=== PATIENT | female | born 2000 | race Caucasian/White ===

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

== ENCOUNTER 2020-02-26 12:50 | Emergency (ER) | payer BC, OTHER ==
[~2020-02-26] VITALS: Ht 160 cm; Wt 63.5 kg
[2020-02-26 12:52] VITALS: BP 126/75
== END 2020-02-26 13:49 | disposition home or self-care (01) ==
LOC: ED 12:50
DX: T63.441A Toxic effect of venom of bees, accidental (unintentional), initial encounter (principal); R13.10 Dysphagia, unspecified; Y92.89 Other specified places as the place of occurrence of the external cause

== ENCOUNTER 2021-01-03 15:59 | Emergency (ER) | payer OTHER ==
[~2021-01-03] VITALS: Ht 162.5 cm; Wt 68.0 kg
[2021-01-03 16:08] VITALS: BP 135/88
[2021-01-03 18:57] LABS: BASO # 0.1 10*3/uL (0.0-0.1); BASO % 0.5 % (0.0-1.0); EOS # 0.1 10*3/uL (0.0-0.4); EOS % 0.7 % (1.0-4.0); HEMATOCRIT 43.2 % (37.0-47.0); LYMPH # 4.4 10*3/uL (1.3-4.4); LYMPH % 31.3 % (27.0-41.0); MEAN CELL VOLUME 87.4 fl (81.0-99.0); MEAN CORPUSCULAR HGB 30.4 pg (27.0-31.0); MEAN CORPUSCULAR HGB CONC 34.7 g/dl (33.0-37.0); MEAN PLATELET VOLUME 10.1 fl (9.6-12.3); MONO % 6.9 % (3.0-9.0); NEUT # 8.3 10*3/uL (2.3-7.9); NEUT % 60.2 % (47.0-73.0); PLATELET COUNT AUTOMATED 266 10*3/uL (130-400); RED BLOOD COUNT 4.94 10*6/uL (4.10-5.10); RED CELL DISTRI WIDTH 11.4 % (0-14.5); WHITE BLOOD COUNT 13.9 10*3/uL (4.8-10.8)
[2021-01-03 19:14] LABS: ALBUMIN 4.1 gm/dl (3.1-4.5); ALKALINE PHOSPHATASE 138 U/L (45-117); BUN 10 mg/dl (7-24); CHLORIDE 105 mmol/L (98-107); CREATININE 0.82 mg/dL (0.55-1.02); LIPASE 77 U/L (73-393); POTASSIUM 3.9 mmol/L (3.5-5.1); SGOT/AST 20 IU/L (3-35); SGPT/ALT 27 U/L (12-78); SODIUM 137 mmol/L (136-145); TOTAL PROTEIN 7.8 gm/dL (6.4-8.2)
[2021-01-03 19:25] LABS: BILIRUBIN Negative (Negative); BLOOD Negative (Negative); CLARITY Clear (Clear); COLOR Yellow (Yellow); GLUCOSE Negative (Negative); KETONE Negative (Negative); LEUKO ESTERASE Negative (Negative); NITRITE Negative (Negative); SPECIFIC GRAVITY >= 1.030 (1.001-1.030); UROBILINOGEN 0.2 E.U./dl (0.0-1.0)
[2021-01-03 19:42] LABS: BACTERIA TRACE; RBC 0-2 rbc/hpf (0-2); WBC 0-2 wbc/hpf (0-5)
== END 2021-01-03 20:45 | disposition home or self-care (01) ==
LOC: ED 15:59
PROVIDERS: Physician Assistant
DX: R10.31 Right lower quadrant pain (principal); Z79.899 Other long term (current) drug therapy

== ENCOUNTER → 2021-03-04 | Outpatient (CLI) | payer OTHER | END | disposition home or self-care (01) | LOC: US 03-01 10:00 | PROVIDERS: ATTEND Nurse Practitioner Women's Health | DX: N83.202 Unspecified ovarian cyst, left side (principal) ==

== ENCOUNTER 2022-07-07 13:22 | Emergency (ER) | payer OTHER, BC ==
[~2022-07-07] VITALS: Ht 162.5 cm; Wt 68.0 kg
[2022-07-07 13:36] VITALS: BP 144/79
[2022-07-07 13:52] LABS: BILIRUBIN Negative (Negative); BLOOD Negative (Negative); CLARITY Turbid (Clear); COLOR Yellow (Yellow); GLUCOSE Negative (Negative); KETONE Negative (Negative); NITRITE Negative (Negative); UROBILINOGEN 0.2 E.U./dl (0.0-1.0)
[2022-07-07 14:04] LABS: PH 8.5 (4.5-8.0)
[2022-07-07 14:21] LABS: BACTERIA 1+; LEUKO ESTERASE Negative (Negative); RBC 0-2 rbc/hpf (0-2)
[2022-07-07 15:03] LABS: BASO # 0.1 10*3/uL (0.0-0.1); BASO % 0.5 % (0.0-1.0); EOS # 0.1 10*3/uL (0.0-0.4); HEMATOCRIT 38.6 % (37.0-47.0); LYMPH % 38.3 % (27.0-41.0); MEAN CELL VOLUME 84.3 fl (81.0-99.0); MEAN CORPUSCULAR HGB 30.3 pg (27.0-31.0); MEAN PLATELET VOLUME 9.6 fl (9.6-12.3); MONO # 0.9 10*3/uL (0.1-1.0); MONO % 8.1 % (3.0-9.0); NEUT # 5.5 10*3/uL (2.3-7.9); NEUT % 51.9 % (47.0-73.0); PLATELET COUNT AUTOMATED 267 10*3/uL (130-400); RED BLOOD COUNT 4.58 10*6/uL (4.10-5.10); RED CELL DISTRI WIDTH 11.3 % (0-14.5); WHITE BLOOD COUNT 10.5 10*3/uL (4.8-10.8)
[2022-07-07 15:18] LABS: ALKALINE PHOSPHATASE 73 U/L (45-117); BUN 10 mg/dl (7-24); CHLORIDE 110 mmol/L (98-107); CREATININE 0.86 mg/dL (0.55-1.02); LIPASE 143 U/L (73-393); POTASSIUM 3.6 mmol/L (3.5-5.1); SGOT/AST 14 IU/L (3-35); SGPT/ALT 34 U/L (12-78); SODIUM 141 mmol/L (136-145); TOTAL PROTEIN 7.5 gm/dL (6.4-8.2)
== END 2022-07-07 20:55 | disposition home or self-care (01) ==
LOC: ED 13:22
PROVIDERS: Physician Assistant
DX: R10.30 Lower abdominal pain, unspecified (principal); R11.2 Nausea with vomiting, unspecified

== ENCOUNTER 2023-07-15 22:06 | Emergency (ER) | payer OTHER ==
[~2023-07-15] VITALS: Ht 165.1 cm; Wt 70.3 kg
[2023-07-15 22:18] VITALS: BP 116/60
== END 2023-07-15 23:00 | disposition home or self-care (01) ==
LOC: ED 22:06
DX: H93.92 Unspecified disorder of left ear (principal); Z98.890 Other specified postprocedural states

== ENCOUNTER 2023-10-29 15:15 | Emergency (ER) | payer OTHER ==
[~2023-10-29] VITALS: Ht 162.5 cm; Wt 70.3 kg
[2023-10-29 15:41] VITALS: BP 125/77
[2023-10-29] MEDS ORDERED: NORETH-ESTRAD-1 EAC1 PO (15:42)
[2023-10-29] MEDS ORDERED: IBUPROFEN 600 MG TAB PO ONE (18:30)
[2023-10-29] MEDS ORDERED: ACETAMINOPHEN 325 MG TAB PO ONE (18:30)
== END 2023-10-29 18:56 | disposition home or self-care (01) ==
LOC: ED 15:15
DX: R07.81 Pleurodynia (principal); M54.50 Low back pain, unspecified; Z98.890 Other specified postprocedural states; V89.2XXA Person injured in unspecified motor-vehicle accident, traffic, initial encounter; Y93.89 Activity, other specified; Y92.410 Unspecified street and highway as the place of occurrence of the external cause; Y99.8 Other external cause status

== ENCOUNTER 2024-10-04 21:08 | Emergency (ER) | payer OTHER ==
[~2024-10-04] VITALS: Ht 162.5 cm; Wt 63.5 kg
[~2024-10-04 21:08] MED LIST changes: +NORETH-ESTRAD-1 EAC1 PO
[2024-10-04 22:11] VITALS: BP 117/75
[2024-10-04] MEDS ORDERED: FLUOXETINE HCL40 MG PO (22:12)
[2024-10-04] MEDS ORDERED: HYDROXYZINE HCL25 MG PO (22:13)
[2024-10-05] MEDS ORDERED: AVPAK AZITHROM250 MG PO (00:16)
== END 2024-10-05 00:28 | disposition home or self-care (01) ==
LOC: ED 21:08
DX: J40 Bronchitis, not specified as acute or chronic (principal); Z20.822 Contact with and (suspected) exposure to COVID-19; Z79.899 Other long term (current) drug therapy; Z96.22 Myringotomy tube(s) status

== ENCOUNTER 2024-10-15 07:51 | Emergency (ER) | payer OTHER ==
[~2024-10-15] VITALS: Wt 63.5 kg
[~2024-10-15 07:51] MED LIST changes: +AVPAK AZITHROM250 MG PO; +FLUOXETINE HCL40 MG PO; +HYDROXYZINE HCL25 MG PO
[2024-10-15 08:15] VITALS: BP 98/52
[2024-10-15] MEDS ORDERED: Ondansetron Hydrochloride 4 MG TAB SL ONE (08:20)
[2024-10-15 09:37] LABS: BILIRUBIN Negative (Negative); BLOOD Negative (Negative); CLARITY Clear (Clear); COLOR Yellow (Yellow); GLUCOSE Negative (Negative); KETONE Trace (Negative); LEUKO ESTERASE Negative (Negative); NITRITE Negative (Negative); SPECIFIC GRAVITY >= 1.030 (1.001-1.030)
[2024-10-15 09:58] LABS: BACTERIA 1+; RBC 0-2 rbc/hpf (0-2); WBC 0-2 wbc/hpf (0-5)
[2024-10-15] MEDS ORDERED: IOHEXOL 300 MG/ML 100 ML VIAL IV ONE (10:25)
[2024-10-15] MEDS ORDERED: IOHEXOL 300 MG/ML 100 ML VIAL ONE (10:39)
[2024-10-15] MEDS ORDERED: VIBRAMYCIN100 MG PO (11:48)
== END 2024-10-15 12:14 | disposition home or self-care (01) ==
LOC: ED 07:51
PROVIDERS: Internal Medicine
DX: J18.9 Pneumonia, unspecified organism (principal); K52.9 Noninfective gastroenteritis and colitis, unspecified; Z20.822 Contact with and (suspected) exposure to COVID-19; N39.0 Urinary tract infection, site not specified; Z98.890 Other specified postprocedural states

== ENCOUNTER 2025-09-05 20:54 | Emergency (ER) | payer OTHER ==
[~2025-09-05] VITALS: Ht 152.4 cm; Wt 77.1 kg
[~2025-09-05 20:54] MED LIST changes: +VIBRAMYCIN100 MG PO
[2025-09-05 21:14] VITALS: BP 121/71
== END 2025-09-05 22:40 | disposition left against medical advice (07) ==
LOC: ED 20:54
DX: O26.892 Other specified pregnancy related conditions, second trimester (principal); R05.9 Cough, unspecified; R09.81 Nasal congestion; R07.89 Other chest pain; Z53.21 Procedure and treatment not carried out due to patient leaving prior to being seen by health care provider